=== PATIENT | female | born 1950 | race Caucasian/White ===

== ENCOUNTER 2021-11-25 07:30 | Inpatient (IN) ==
[2021-11-14 16:18] LABS: Basophils # (Auto) 0.07 K/mcL (0.00-0.30); Basophils % (Auto) 0.6 % (0.0-2.0); Eosinophils # (Auto) 0.07 K/mcL (0.00-0.70); Eosinophils % (Auto) 0.6 % (0.0-7.0); Hematocrit 39.8 % (34.1-44.9); Hemoglobin 13.6 g/dL (11.2-15.7); Lymphocytes # (Auto) 1.15 K/mcL (1.50-4.80); Lymphocytes % (Auto) 10.1 % (15.5-49.0); Mean Cell Volume 94.5 fL (80.0-100.0); Mean Corpuscular HGB Conc 34.2 g/dL (31.0-36.0); Monocytes # (Auto) 0.74 K/mcL (0.10-0.90); Monocytes % (Auto) 6.5 % (1.0-12.0); Neutrophils % (Auto) 82.2 % (38.0-78.0); Platelet Count 235 K/mcL (140-440); RBC 4.21 M/mcL (3.59-5.38); Red Cell Distribution Width 12.4 % (11.5-14.5); WBC 11.3 K/mcL (4.5-11.0)
--- NOTE | 2021-11-16 09:27 | EKG ---
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
[~2021-11-25 07:30] MED LIST: ceFAZolin 2 GM in DEXTROSE 5% IN WATER 50 ML IV SCH
[2021-11-25 08:47] LABS: POC Blood Urea Nitrogen 14 mg/dL (6-20); POC CO2 27 mmol/L (22-30); POC Calcium, Ionized 1.23 mmEq/L (1.16-1.32); POC Chloride 102 mEq/L (96-108); POC Creatinine 0.6 mg/dL (0.6-1.2); POC Glucose, Random 90 mg/dL (70-105); POC Hematocrit 40 % (36-48); POC Potassium 3.6 mEql/L (3.3-5.1); POC Sodium 139 mEq/L (133-145)
[2021-11-25] MEDS ORDERED: DEXAMETHASONE 10 MG/ML VIAL ONE (10:08)
[2021-11-25] MEDS ORDERED: MAGNESIUM SULFATE 2 GM/50 ML BAG IV ONE (10:08)
[2021-11-25] MEDS ORDERED: TRANEXAMIC ACID 1,000 MG/10 ML VIAL ONE (10:08)
[2021-11-25] MEDS ORDERED: SUCCINYLCHOLINE 20 MG/ML ML IV ONE (10:08)
[2021-11-25] MEDS ORDERED: LIDOCAINE HCL/PF 100 MG/5 ML SYRINGE IV ONE (10:08)
[2021-11-25] MEDS ORDERED: PROPOFOL 200 MG/20 ML VIAL IV ONE (10:08)
[2021-11-25] MEDS ORDERED: ONDANSETRON 4 MG/2 ML VIAL ONE (10:08)
[2021-11-25] MEDS ORDERED: GLYCOPYRROLATE 0.2 MG/ML VIAL IV ONE (10:08)
[2021-11-25] MEDS ORDERED: ePHEDrine 50 MG/5 ML SYRINGE (ANEST) IV ONE (10:08)
[2021-11-25] MEDS ORDERED: KETAMINE 50 MG/ML Syringe (ANEST) IV ONE (10:08)
[2021-11-25] MEDS ORDERED: LIDOCAINE W/EPI 1% 20 ML, BUPIVACAINE 0.5% 20 ML IJ ONE (11:06)
--- NOTE | 2021-11-25 11:33 | Brief Operative Note ---
Brief Operative Note Date of procedure: 11/25/21 Pre-op diagnosis: left hip glut medius tenondon tear, greater trochanter bursi tis Post-op diagnosis: same Procedure: left hip gluteus medius repair, IT band fasciotomy, greater troch bursectomy Grafts/Implants: Yes Anesthesia: GETA Findings: 1cm tear essentially full thickness Complications: none Surgeon: Mei He Batch Still Operator: Elier Marrero Estimated blood loss (cc): 20 Tourniquet Time (Minutes): 0 Specimens Removed/Pathology: none sent Condition: stable Disposition: PACU
[2021-11-25] MEDS ORDERED: ONDANSETRON 4 MG/2 ML VIAL IV PRN (11:52)
[2021-11-25] MEDS: fentaNYL 100 MCG/2 ML VIAL IV PRN ×4 (11:52→12:06)
[2021-11-25] MEDS ORDERED: LACTATED RINGERS 250 ML IV PRN (11:52)
[2021-11-25] MEDS ORDERED: PROMETHAZINE 25 MG/ML VIAL IV PRN (11:52)
[2021-11-25] MEDS ORDERED: NALOXONE HCL 0.4 MG/ML VIAL IV PRN (11:52)
[2021-11-25] MEDS ORDERED: IPRATROPIUM/ALBUTEROL 3 ML AMPUL.NEB NEB PRN (11:52)
[2021-11-25] MEDS ORDERED: MEPERIDINE 25 MG/ML VIAL IV PRN (11:52)
[2021-11-25] MEDS ORDERED: ACETAMINOPHEN 1,000 MG/100 ML BAG IV ONE (11:52)
[2021-11-25] MEDS ORDERED: fentaNYL 100 MCG/2 ML VIAL IV ONE (11:59)
[2021-11-25] MEDS ORDERED: LACTATED RINGERS 1,000 ML IV SCH (12:00)
[2021-11-25] MEDS ORDERED: METHOCARBAMOL 1,000 MG/10 ML VIAL IV ONE (12:08)
[2021-11-25] MEDS ORDERED: HYDROmorphone 0.5 MG/0.5 ML SYRINGE IV ONE (12:14)
[2021-11-25] MEDS ORDERED: METHOCARBAMOL 1,000 MG/10 ML VIAL ONE (12:16)
[2021-11-25] MEDS ORDERED: HYDROmorphone 0.5 MG/0.5 ML SYRINGE ONE (12:22)
--- NOTE | 2021-11-25 12:23 | Operative Note ---
DATE OF OPERATION: 11/25/2021 PREOPERATIVE DIAGNOSES: 1. Left gluteus medius tendon tear. 2. Left hip greater trochanteric bursitis. POSTOPERATIVE DIAGNOSES: 1. Left gluteus medius tendon tear. 2. Left hip greater trochanteric bursitis. PROCEDURE PERFORMED: 1. Left gluteus medius tendon repair. 2. Left IT band fasciotomy at the level of the hip. 3. Left greater trochanteric bursectomy. SURGEON: Mei He M.D. SANDER PORTABLE MACHINE: Elier Marrero PA-C. The PA's assistance was required for the safe and efficient completion of the entire case. This provider's expertise and technical skill were required throughout the case. The PA assisted with preoperative coordination, intraoperative retraction, wound closure, dressing and splint application, as well as postoperative documentation and care coordination. ANESTHESIA: General. INTRAVENOUS FLUIDS: A liter of lactated Ringer's. ESTIMATED BLOOD LOSS: 20 mL. TOURNIQUET TIME: Not applicable. ANTIBIOTICS: 2 grams Ancef. IMPLANTS: Arthrex SpeedBridge construct. INTRAOPERATIVE COMPLICATIONS: None apparent. PATHOLOGY/LAB: None. INDICATIONS FOR PROCEDURE: The patient is a 71-year-old female who has chronic, recalcitrant left hip pain. She has had multiple injections and therapy in the past, which have failed to improve her symptoms long-term. She has short-term benefit from the greater trochanteric bursa injections. She has a clinical exam as well as the MRI indicative of the gluteus medius tendon tear. I discussed what this is as well as treatment options. I discussed that we can attempt to repair this, which is considered a rotator cuff of the hip. I discussed what this entails and the postoperative expectation and recovery process. The risks and benefits were discussed as well. She understands and she wants to proceed in that fashion. DESCRIPTION OF PROCEDURE: Patient was met in the preoperative holding area where site was verified and marked with the patient's input. She was taken back to the operating room where she underwent successful anesthesia via endotracheal tube. She was placed in lateral decubitus position, left side up. The right arm was placed into a cutout for the lateral positioning. The left hip was then prepped and draped in the usual sterile fashion with ChloraPrep. Surgical timeout was performed to verify patient's identity, correct procedure being performed, correct extremity being operated on. Everybody was in agreement. I created approximately a 10 cm incision over the greater trochanter being the center. Skin was sharply incised. Hemostasis was obtained with electrocautery device. Dissection was taken down to the IT band distally and the fascia. Tapia was used to elevate the anterior and posterior flaps. The IT band over the maximal point of the greater trochanter was measured 2 cm proximal and 2 cm distal in the cranial and caudal direction as well as the ventral dorsal direction. This was T'd. The hans-shape was excised in completing the fasciotomy. This incision apex was then extended proximally over the muscle to further expose the tip of the greater trochanter. With probing of this, the gluteus medius did have a defect. There was about a millimeter or so of tendon intact on the most superficial portion. Deep to this, it undermined all the way over to the tip of the greater trochanter in a full-thickness defect. This measured approximately a centimeter from [id number] direction. This was rongeured to nice cortical bone. At this point, utilizing a SpeedBridge construct, I placed two medial row anchors and these sutures were placed through the tendon portion itself and then in a transosseous equivalent brought up to two lateral anchors and compressed the tendon back down to bone. I did microfracture the greater trochanter as well. At this point, wound was copiously irrigated with IrriSept as well as normal irrigation. The fascia with the gluteus modesta was closed with a #1 Vicryl in running fashion, subcutaneous tissue was closed in layered fashion with the deep fat layer being #1 Vicryl, subcutaneous tissue with 3-0 Vicryl, and skin closed with a running nylon or david. The leg was then cleaned and dried. We placed a silver dressing. The patient awoke from anesthesia and transferred to PACU in stable condition. POSTOPERATIVE PLAN: The patient will follow up in 10 to 13 days for postoperative wound check. In the interim, she is 50% weightbearing with a walker only. She will begin physical therapy in 1 to 2 weeks. CHIDI:elaine Job ID: [id number] Doc ID: [id number] Mei He MD [facility]
--- NOTE | 2021-11-25 17:17 | Orthopedic Progress Note ---
SUBJECTIVE Subjective Patient information: Note initiated : 11/25/21 at 5:14 pm Service Date, if different from initiated Date: [] Patient: Jeanie Dolan 71 y/o F admitted on 11/25/21 for Left Hip IT Band Fascitomy, Greater Trochanter . Chief Complaint: [] Constitutional Vitals: Vital Signs Temp Pulse Resp BP Pulse Ox 97.2 F 82 16 142/72 98 11/25/21 15:15 11/25/21 15:15 11/25/21 15:15 11/25/21 15:15 11/25/21 15:15 Period Temp Pulse Resp BP Sys/Ritchie Pulse Ox Last 24 Hr 97.0 F-97.7 F 78-99 14-25 122-160/60-102 92-100 Intake and Output 11/25/21 11/25/21 11/25/21 05:59 13:59 21:59 Intake Total 1050 400 Output Total 25 350 Balance 1025 50 Weight 200 lb Patient Weight 11/26/21 05:59 Weight 200 lb Intake & Output: Intake & Output 11/25/21 11/25/21 11/25/21 05:59 13:59 21:59 Intake Total 1050 400 Output Total 25 350 Balance 1025 50 Weight 200 lb Intake: IV 150 Ancef 2 gm In Dextrose 5% in 50 Water 50 ml @ 100 mls/hr IV PREOP ROBIN Rx#:[id number] Oral 400 IV - Manual Only 900 Output: Urine Catheter Amount 350 Estimated Blood Loss 25 Other: Meal jello Feeding Ability Independent Urine Appearance Clear Urine Color Dark Yellow OBJ DATA Labs CBC & Chem 7: 11/14/21 14:30 11/14/21 14:30 A/P Assessment and plan (1) Tear of gluteus medius tendon: Assessment and plan: 71 year old female day of surgery for left hip gluteus medius tendon repair, greater troch bursectomy and IT band fasciotomy. Patient did well post operatively and met discharge criteria with the needed home care items in place. Given this, patient was discharge home on day of surgery rather than staying overnight. Status: Acute Time Spent With Patient Time: Total time spent is greater than 50% in coordination of care (as documented) at patient's floor/unit and/or counseling patient:
== END 2021-11-25 15:15 | disposition home or self-care (01) | DRG 502 ==
LOC: MEDSUR 08:40 → EDSTATUS 10:45
PROVIDERS: ADMIT Orthopaedic Surgery; ATTEND Orthopaedic Surgery